=== PATIENT | female | born 1995 | race Two or more races ===

== ENCOUNTER 2021-01-13 10:25 | Emergency (ER) | payer MEDICAID ==
[~2021-01-13] VITALS: Ht 152.4 cm; Wt 53.1 kg
[2021-01-13 11:36] VITALS: BP 120/70
[2021-01-13] MEDS ORDERED: IBUPROFEN 600 MG TAB PO ONE (12:30)
== END 2021-01-13 13:02 | disposition home or self-care (01) ==
LOC: ER 10:25
DX: S00.83XA Contusion of other part of head, initial encounter (principal); J45.909 Unspecified asthma, uncomplicated; W01.0XXA Fall on same level from slipping, tripping and stumbling without subsequent striking against object, initial encounter; Y93.89 Activity, other specified; Y92.89 Other specified places as the place of occurrence of the external cause; Y99.8 Other external cause status